=== PATIENT | male | born 1940 | race Caucasian/White ===

== ENCOUNTER 2019-11-14 09:32 | Inpatient (IN) | payer MEDICARE, BC ==
[~2019-11-14] VITALS: Ht 177.8 cm; Wt 72.6 kg
[~2019-11-14 09:32] MED LIST: CARVEDILOL25 MG; MECLIZINE HCL12.5 MG PO; NORVASC10 MG; ZESTORETIC 20-1 EACH; ZOCOR40 MG
[2019-11-14 09:39] VITALS: BP 143/71
[2019-11-14] MEDS ORDERED: ZPAK PO (09:44)
[2019-11-14 10:19] LABS: ABSOLUTE BASOPHILS 0.1 thou/uL (0.0-0.2); ABSOLUTE EOSINOPHILS 0.3 thou/uL (0.0-0.7); ABSOLUTE LYMPHOCYTES 3.2 thou/uL (0.8-5.3); ABSOLUTE MONOCYTES 1.3 thou/uL (0.0-1.2); ABSOLUTE NEUTROPHILS 13.7 thou/uL (1.6-8.1); BASOPHILS 0.5 %; EOSINOPHILS 1.7 %; HEMATOCRIT 43.9 % (42.0-52.0); HEMOGLOBIN 14.8 gm/dL (14.0-18.0); MCH 31.4 pg (26.0-34.0); MCHC 33.7 g/dL (28.0-37.0); MONOCYTES 7.2 %; MPV 7.9 fl. (7.2-11.1); NUCLEATED RBCS 0 /100WBC; PLATELET COUNT* 340 thou/uL (150-400); POLYS 73.6 %; RBC 4.72 mil/uL (4.50-6.00); RDW-CV 13.8 % (10.5-14.5); WBC 18.6 thou/uL (4.0-11.0)
[2019-11-14 10:29] LABS: CALCIUM 8.6 mg/dL (8.5-10.1); CREATININE 2.3 mg/dL (0.6-1.3); POTASSIUM 5.4 mmol/L (3.5-5.1)
[2019-11-14 10:42] LABS: ALBUMIN 2.7 g/dL (3.4-5.0); MAGNESIUM 2.2 mg/dL (1.8-2.4); TOTAL BILIRUBIN 0.5 mg/dL (<0.1-1.0); TOTAL PROTEIN 6.6 g/dL (6.4-8.2)
[2019-11-14 11:35] VITALS: BP 118/71
[2019-11-14 12:07] VITALS: BP 149/77
--- NOTE | 2019-11-14 14:14 | EKG ---
[place] [address] ELECTROCARDIOGRAM REPORT Name: HECTOR PEREZ Room: [address] IN .R.#: [id number] Admission: 11/14/19 Attend Phys: Carissa Gill, Discharge: Date of : 38 Date of Service: 11/14/19 0949 Report #: [id number] THIS REPORT FOR: //name// [facility] ED Test Date: 2019-11-14 Test Time: 09:49:12 Pat Name: HECTOR PEREZ Department: Room: [facility] Gender: M Landscape Crew Leader: MILI : 1940 Requested By: Johnny Villeda Order Number: [id number] MD: Huber Chatterjee Measurements Intervals [place] Rate: 90 P: 50 IA: 135 QRS: 20 QRSD: 90 T: 59 QT: 348 QTc: 426 Interpretive Statements Sinus rhythm low voltage Abnormal R-wave progression, early transition Compared to ECG 11/18/2010 03:49:49 No significant changes Electronically Signed On 11-14-2019 14:12:42 CDT by Huber Chatterjee [email or web address] <ELECTRONICALLY SIGNED> By: Huber Chatterjee MD, [facility] 11/14/19 1412 0949 0949 Huber Chatterjee MD, [facility] /EPI
--- NOTE | 2019-11-14 15:36 | 2DMMODE ---
[facility] [address] [place] [address] 2 D/M-MODE ECHOCARDIOGRAM Name: HECTOR PEREZ Room: [address] IN .R.#: [id number] Admission: 11/14/19 Attend Phys: Carissa Gill, Discharge: Date of : 38 Date of Service: 11/14/19 1534 Report #: [id number] THIS REPORT FOR: cc: Ayaan Vanegas Bradley L. DO Blick, David R. MD [facility] ~ APPROVED REPORT Study performed: 11/14/2019 13:13:07 EXAM: Limited 2D Echocardiogram Patient Location: In-Patient BSA: 1.90 HR: 96 bpm BP: 149/77 mmHg Other Information Study Quality: Technically Limited Technically limited study due to inability to position patient. Indications Pleural Effusion Left Ventricle The left ventricle is normal size. Left ventricular systolic function is borderline. Right Ventricle The right ventricle is normal size. Atria The left atrium size is normal. Aortic Valve The aortic valve is not well visualized. Mitral Valve The mitral valve is normal in structure. Tricuspid Valve The tricuspid valve is normal in structure. Pulmonic Valve [facility] [address] [facility] [place] [address] 2 D/M-MODE ECHOCARDIOGRAM Name: HECTOR PEREZ Room: [address] IN M.R.#: [id number] Admission: 11/14/19 Attend Phys: Carissa Gill, Discharge: Date of : 38 Date of Service: 11/14/19 153 Report #: [id number] Pulmonic valve is not well visualized. Pericardium There is no pericardial effusion. Large pleural effusion. <Conclusion> Left ventricular systolic function is borderline. Large pleural effusion. There is no pericardial effusion. <ELECTRONICALLY SIGNED> By: Huber Chatterjee MD, FACC 11/14/19 1534 33 Huber Chatterjee MD, FACC /INF
[2019-11-14 20:00] VITALS: BP 146/78
[2019-11-15] VITALS: BP 142/71
[2019-11-15 04:00] VITALS: BP 126/71
[2019-11-15 07:42] VITALS: BP 154/72
[2019-11-15 10:55] LABS: HEMATOCRIT 41.3 % (42.0-52.0); HEMOGLOBIN 13.8 gm/dL (14.0-18.0); MCH 31.1 pg (26.0-34.0); MCHC 33.5 g/dL (28.0-37.0); MCV 92.8 fL (80.0-100.0); MPV 7.7 fl. (7.2-11.1); RBC 4.46 mil/uL (4.50-6.00); RDW-CV 13.8 % (10.5-14.5); WBC 17.4 thou/uL (4.0-11.0)
[2019-11-15 11:12] LABS: ALBUMIN 2.5 g/dL (3.4-5.0); CALCIUM 8.1 mg/dL (8.5-10.1); CREATININE 1.9 mg/dL (0.6-1.3); MAGNESIUM 1.8 mg/dL (1.8-2.4); POTASSIUM 4.7 mmol/L (3.5-5.1); TOTAL BILIRUBIN 0.4 mg/dL (<0.1-1.0); TOTAL PROTEIN 6.1 g/dL (6.4-8.2)
[2019-11-15 11:21] LABS: APTT 30.9 Seconds (25.0-31.3); INR 1.1; PROTIME 11.1 Seconds (9.20-11.50)
[2019-11-15 16:41] LABS: BF RBC 2778 /mm3; TOTAL CELL COUNT 645 /mm3
[2019-11-15 16:50] LABS: TOTAL VOLUME 2460 ml
[2019-11-15 16:51] LABS: CLARITY HAZY
[2019-11-15 16:54] LABS: BF LYMPHOCYTES 71 %; BF MONOCYTES 1 %; BF POLYS 28 %; BF TISSUE 21 /100 WBC
--- NOTE | 2019-11-15 18:42 | CON ---
[address] [address] CONSULTATION Name: HECTOR PEREZ Room: [address] IN .R.#: [id number] Admission: 11/14/19 Attend Phys: Carissa Gill MD Discharge: Date of : 38 Report #: [id number] THIS REPORT FOR: //name// cc: Ayaan Vanegas Bradley L. DO ~ THIS REPORT FOR: //name// CC: Ayaan Gill DATE OF SERVICE: 11/15/2019 I was asked to see this 79-year-old gentleman for shortness of breath, acute respiratory failure, abnormal CT of the chest. HISTORY OF PRESENT ILLNESS: He has history of [id number]-[id number] smoking, quit smoking 20 years ago. He presented to the Emergency Room for increased shortness of breath. He has had shortness of breath for the past 3-4 weeks, which has been getting worse gradually. He denies chest pain. He has cough with small amount of sputum production. He denies hemoptysis. He has been getting so weak to the point that he is not able to walk much. He was not told if he has asthma or COPD. He has not had pulmonary function test. He is hard of hearing. He is a poor historian. PAST MEDICAL HISTORY: Hypertension, chronic kidney disease, abdominal aortic aneurysm, hyperlipidemia. ALLERGIES: No known drug allergies. MEDICATIONS: Currently, he is on Lovenox 30 mg subcutaneous daily, Norvasc, hydrochlorothiazide, lisinopril, atorvastatin, Coreg, Tylenol, DuoNeb p.r.n., aspirin, and Levaquin. SOCIAL HISTORY: History of 98-zkud-irab smoking, stopped smoking 20 years ago. FAMILY HISTORY: Hypertension. REVIEW OF SYSTEMS: As mentioned as above, other systems otherwise negative. PHYSICAL EXAMINATION: GENERAL: This is an elderly gentleman. VITAL SIGNS: His O2 saturation on 5 liters of oxygen is 94%, respiratory rate 20, heart rate 92, blood pressure 118/71, temperature 36.7. HEENT: Normocephalic, atraumatic. Pupils equal, round, reactive to light. Nose is clear. Throat is clear. NECK: There is no lymphadenopathy [place] [address] CONSULTATION Name: HECTOR PEREZ Room: [address]#: [id number] Admission: 11/14/19 Attend Phys: Carissa Gill MD Discharge: Date of : 38 Report #: [id number] CARDIOVASCULAR: Regular rate and rhythm. Distant heart sounds. CHEST: Inspection is normal. LUNGS: There are diminished breath sounds on the left. Dullness on the left. ABDOMEN: Soft. Bowel sounds are good. There is no mass. EXTREMITIES: There is no cyanosis. LYMPHATICS: There is no lymphadenopathy. NEUROLOGIC: He is alert. LABORATORY DATA: I reviewed the following lab data: COVID-19 pending. Sodium 139, potassium 5.4, chloride 105, CO2 of 27, glucose 113, BUN 43, creatinine 2.3. Lactic acid 1.2. Troponin less than 0.06. BNP 93. WBC 18.6, hemoglobin 14.8, and platelets 340. D-dimer 3.34. CT of abdomen showed 5.6 cm abdominal aortic aneurysm, severe calcification, renal cyst. No lymphadenopathy. CT of head did show no acute abnormalities. CT of the chest showed a 4 x 5 x 6 cm mass in the left upper lobe area mild left hilar lymphadenopathy, large left pleural effusion with atelectasis. Calcific pleural plaques. IMPRESSION: 1. Acute respiratory failure secondary to pleural effusion, atelectasis, rule out pneumonia, rule out chronic obstructive pulmonary disease versus others. 2. Abnormal CT of the chest. 3. Left large pleural effusion, suspect this is malignant pleural effusion. Other differential diagnosis including inflammatory versus infectious versus others. 4. Ex-smoker, probably chronic obstructive pulmonary disease. 5. Lung mass, highly suspect malignancy. 6. Chronic kidney disease. 7. Abdominal aortic aneurysm. 8. Hypertension. 9. Hyperlipidemia. PLAN AND RECOMMENDATIONS: 1. Titrate FiO2 to keep O2 saturation 92%. 2. Bronchodilator. 3. Agree with left ultrasound-guided thoracentesis by IR. We will send pleural fluid for pH, cytology, cultures, cell count with differential, LDH, glucose, total protein. We will send blood at the same time for total protein, glucose, and LDH. He is not sure if he wants thoracentesis or anything done with his lung mass. wait for pleural fluid cytology, if neg for malignancy, would need lung biopsy, ct guided bx vs bronchoscopy. [address] [address] CONSULTATION Name: HECTOR PEREZ Room: [address] IN M.R.#: [id number] Admission: 11/14/19 Attend Phys: Carissa Gill MD Discharge: Date of : 38 Report #: [id number] I will discuss with Dr. Gill. Follow up COVID-19 testing. 5. Lovenox for DVT prophylaxis, on hold for thoracentesis. 6. The patient is full code. 7. Agree with antibiotics. 8. The findings and recommendations were discussed with the patient and RN. Thank you very much for allowing me to participate in care of this very nice gentleman. <ELECTRONICALLY SIGNED> By: Nikki Mejia MD 11/15/19 1842 0545 [id number] Mejia MD /nt
[2019-11-15 20:00] VITALS: BP 119/65
[2019-11-15 20:47] LABS: SOURCE PLEURAL FLUID
[2019-11-16] VITALS: BP 102/57
[2019-11-16 03:27] LABS: ABSOLUTE BASOPHILS 0.1 thou/uL (0.0-0.2); ABSOLUTE EOSINOPHILS 0.1 thou/uL (0.0-0.7); ABSOLUTE MONOCYTES 1.6 thou/uL (0.0-1.2); BASOPHILS 0.3 %; EOSINOPHILS 0.8 %; HEMATOCRIT 38.3 % (42.0-52.0); HEMOGLOBIN 12.9 gm/dL (14.0-18.0); LYMPHOCYTES 16.1 %; MCH 31.2 pg (26.0-34.0); MCHC 33.8 g/dL (28.0-37.0); MCV 92.5 fL (80.0-100.0); MONOCYTES 8.6 %; MPV 8.4 fl. (7.2-11.1); NUCLEATED RBCS 0 /100WBC; PLATELET COUNT* 269 thou/uL (150-400); POLYS 74.2 %; RBC 4.14 mil/uL (4.50-6.00); RDW-CV 13.7 % (10.5-14.5); WBC 18.9 thou/uL (4.0-11.0)
[2019-11-16 03:47] LABS: ALBUMIN 2.1 g/dL (3.4-5.0); CALCIUM 8.1 mg/dL (8.5-10.1); CREATININE 2.1 mg/dL (0.6-1.3); TOTAL BILIRUBIN 0.5 mg/dL (<0.1-1.0); TOTAL PROTEIN 5.3 g/dL (6.4-8.2)
[2019-11-16 04:00] VITALS: BP 105/54
[2019-11-16 07:35] VITALS: BP 111/56
[2019-11-16 12:08] LABS: BODY FLUID AMYLASE 15 U/L (()); BODY FLUID LDH 366 IU/L (()); BODY FLUID PROTEIN 3.4 g/dL (())
[2019-11-16 16:00] VITALS: BP 126/72
[2019-11-16 20:06] VITALS: BP 110/70
[2019-11-17 04:29] LABS: ABSOLUTE BASOPHILS 0.1 thou/uL (0.0-0.2); ABSOLUTE EOSINOPHILS 0.2 thou/uL (0.0-0.7); ABSOLUTE LYMPHOCYTES 3.4 thou/uL (0.8-5.3); ABSOLUTE MONOCYTES 1.6 thou/uL (0.0-1.2); ABSOLUTE NEUTROPHILS 14.7 thou/uL (1.6-8.1); BASOPHILS 0.3 %; HEMATOCRIT 41.8 % (42.0-52.0); HEMOGLOBIN 13.8 gm/dL (14.0-18.0); MCH 30.7 pg (26.0-34.0); MCHC 32.9 g/dL (28.0-37.0); MCV 93.3 fL (80.0-100.0); MONOCYTES 8.2 %; MPV 8.6 fl. (7.2-11.1); NUCLEATED RBCS 0 /100WBC; PLATELET COUNT* 285 thou/uL (150-400); POLYS 73.5 %; RBC 4.48 mil/uL (4.50-6.00); RDW-CV 13.9 % (10.5-14.5)
[2019-11-17 04:43] LABS: ALBUMIN 2.4 g/dL (3.4-5.0); CALCIUM 8.2 mg/dL (8.5-10.1); CREATININE 2.2 mg/dL (0.6-1.3); POTASSIUM 4.7 mmol/L (3.5-5.1); TOTAL BILIRUBIN 0.5 mg/dL (<0.1-1.0); TOTAL PROTEIN 5.9 g/dL (6.4-8.2)
[2019-11-17 07:56] VITALS: BP 112/66
[2019-11-17] MEDS ORDERED: LEVAQUIN 500 M500 M1 PO (07:59)
[2019-11-17] MEDS ORDERED: MUCUS ER1200 MG PO (07:59)
[2019-11-17 10:53] VITALS: BP 112/66
[2019-11-17 15:34] LABS: SOURCE THORACENTESIS
[2019-11-17 15:35] LABS: SOURCE THORACENTESIS
[2019-11-18 16:08] LABS: BODY FLUID PH 7.4 (Not Estab.)
--- NOTE | 2019-11-19 13:05 | CON ---
[address] [address] CONSULTATION Name: HECTOR PEREZ Room: [address]#: [id number] Admission: 11/14/19 Attend Phys: Carissa Gill MD Discharge: 11/17/19 Date of : 38 Report #: [id number] THIS REPORT FOR: //name// cc: Ayaan Vanegas DO Ayaan Vanegas DO ~ THIS REPORT FOR: //name// CC: Ayaan Gill DATE OF SERVICE: 11/16/2019 REQUESTING PHYSICIAN: Carissa Gill MD REASON FOR CONSULTATION: Lung mass, pleural effusion. HISTORY OF PRESENT ILLNESS: The patient is a pleasant 79-year-old man an extremely poor historian. He was admitted to the hospital with worsening shortness of breath. He was found to have large pleural effusion, right-sided pleural effusion and possible pneumonia. He was evaluated for COVID-19, test is negative. He is on antibiotics. Pleural effusion was drained. He is feeling better. He has a right upper lobe lung mass. Oncology consult is requested. He is an extremely poor historian. He cannot tell me if he has any knowledge about lung mass. He does not have complaints of previous shortness of breath or cough. Denies hemoptysis. Denies headaches. Denies weight loss. PAST MEDICAL HISTORY: Cannot give me any history. He is previous smoker. SOCIAL HISTORY: Previous smoker, . He lives with his . FAMILY HISTORY: Cannot give any family history. REVIEW OF SYSTEMS: See above. PHYSICAL EXAMINATION: GENERAL: Reveals elderly man, not in acute distress. VITAL SIGNS: Blood pressure 115/56, heart rate is 82, temperature 98.7, respirations 18. HEENT: Does not reveal thrush. NECK: Supple. CARDIAC: Normal S1, S2. LUNGS: Decreased breath sounds. ABDOMEN: Soft. EXTREMITIES: No edema. LABORATORY DATA: White count 18.9, hemoglobin 12.9, platelets 239. Sodium 137, [facility] [address] [place] [address] CONSULTATION Name: HECTOR PEREZ Room: [address]#: [id number] Admission: 11/14/19 Attend Phys: Carissa Gill MD Discharge: 11/17/19 Date of : 38 Report #: [id number] potassium 5.0, chloride 105, bicarbonate is 26, BUN 40, creatinine 2.1. CT of the chest shows right upper lobe mass measuring 5/4/6 cm with right hilar adenopathy, bilateral pleural effusion. ASSESSMENT AND PLAN: Right upper lobe mass. The patient is not interested in any workup right now. Pleural effusion fluid cytology is pending. It is difficult for me to assess the patient's cognitive function. He seems has very poor understanding of his health and overall situation. I recommended followup with Dr. Palma for fluid cytology. Hopefully, his mentation is a little bit better and his family members are present at a followup with Dr. Palma. Dr. Palma will decide further workup. I advised the patient to make informed decisions regarding management of this right lung mass. Thank you very much for allowing me to participate in care of this patient. <ELECTRONICALLY SIGNED> By: Lauren Landa MD 11/19/19 1305 1009 [id number] Landa MD /nt
== END 2019-11-17 15:22 | disposition home or self-care (01) | DRG 177 ==
LOC: M.ERS 09:32 → M.TBA-ER 10:47 → M.ORTHSURG 10:47
PROVIDERS: Emergency Medicine Emergency Medical Services; Internal Medicine Pulmonary Disease; Nurse Practitioner; ADMIT Internal Medicine
PROC: 0W9B3ZZ Drainage of Left Pleural Cavity, Percutaneous Approach (ICD-10-PCS; principal; 2019-11-15)
DX: J15.6 Pneumonia due to other Gram-negative bacteria (principal); J96.01 Acute respiratory failure with hypoxia; J91.0 Malignant pleural effusion; R65.10 Systemic inflammatory response syndrome (SIRS) of non-infectious origin without acute organ dysfunction; J98.11 Atelectasis; N18.4 Chronic kidney disease, stage 4 (severe); J44.0 Chronic obstructive pulmonary disease with (acute) lower respiratory infection; F17.210 Nicotine dependence, cigarettes, uncomplicated; R91.8 Other nonspecific abnormal finding of lung field; I12.9 Hypertensive chronic kidney disease with stage 1 through stage 4 chronic kidney disease, or unspecified chronic kidney disease; I71.4 Abdominal aortic aneurysm, without rupture; D72.829 Elevated white blood cell count, unspecified; E78.2 Mixed hyperlipidemia; Z20.828 Contact with and (suspected) exposure to other viral communicable diseases; Z82.49 Family history of ischemic heart disease and other diseases of the circulatory system